=== PATIENT | female | born 2000 | race Caucasian/White ===

== ENCOUNTER → 2022-02-26 | Outpatient (REF) | payer OTHER | LOC: M LAB REF 19:23 | PROVIDERS: ATTEND Internal Medicine | DX: R10.30 Lower abdominal pain, unspecified (principal) ==

== ENCOUNTER → 2022-10-24 | Outpatient (CLI) | payer OTHER | LOC: M SOG 10:47 | PROVIDERS: ATTEND Physician Assistant | DX: M25.562 Pain in left knee (principal) ==

== ENCOUNTER → 2023-01-13 | Outpatient (REF) | payer OTHER ==
[2023-01-13 15:26] LABS: GC DNA AMPLIFICATION NEGATIVE (NEGATIVE)
== END ==
LOC: M LAB REF 12:20
PROVIDERS: ATTEND Physician Assistant
DX: R30.0 Dysuria (principal)

== ENCOUNTER 2023-06-11 21:21 | Inpatient (IN) | payer MEDICAID, OTHER, SELFPAY ==
[~2023-06-11] VITALS: Ht 154.9 cm; Wt 53.1 kg
[2023-06-11 22:58] LABS: HEMATOCRIT 38.9 % (36.0-47.0); MEAN CORPUSCULAR HEMOGLOBIN 26.9 pg (27.0-33.0); MEAN CORPUSCULAR HGB CONC 33.4 g/dl (32.0-36.5); MEAN CORPUSCULAR VOLUME 80.4 fl (80.0-96.0); PLATELET COUNT, AUTOMATED 223 10^3/uL (150-450); RED BLOOD COUNT 4.84 10^6/uL (4.00-5.40); WHITE BLOOD COUNT 9.2 10^3/uL (4.0-10.0)
[2023-06-11 23:21] LABS: AMPHETAMINES LEVEL URINE NEGATIVE (NEGATIVE); BARBITURATES URINE NEGATIVE (NEGATIVE); BENZODIAZEPINES URINE NEGATIVE (NEGATIVE); CANNABINOIDS URINE NEGATIVE (NEGATIVE); COCAINE METABOLITE URINE NEGATIVE (NEGATIVE); METHADONE URINE NEGATIVE (NEGATIVE); OPIATES URINE NEGATIVE (NEGATIVE); PHENCYCLIDINE URINE NEGATIVE (NEGATIVE)
[2023-06-11 23:23] LABS: ETHYL ALCOHOL (ETHANOL) 0.003 % (0.000-0.010)
[2023-06-11 23:25] LABS: ALBUMIN 4.5 G/DL (3.2-5.2); ALKALINE PHOSPHATASE 64 U/L (46-116); ALT/SGPT 18 U/L (7.0-40); AST/SGOT 19 U/L (<34); BILIRUBIN,DIRECT 0.2 MG/DL (<0.4); BILIRUBIN,TOTAL 0.6 MG/DL (0.3-1.2); BLOOD UREA NITROGEN 10 MG/DL (9-23); CALCIUM LEVEL 9.4 MG/DL (8.5-10.1); CARBON DIOXIDE LEVEL 26 MMOL/L (20-31); CHLORIDE LEVEL 106 MMOL/L (98-107); CREATININE FOR GFR 0.64 MG/DL (0.55-1.30); GLOMERULAR FILTRATION RATE > 60.0 (>60); GLUCOSE, FASTING 88 MG/DL (60-100); POTASSIUM SERUM 3.9 MMOL/L (3.5-5.1); SALICYLATE LEVEL < 3.0 MG/DL (<30); SODIUM LEVEL 140 MMOL/L (136-145)
[2023-06-11 23:26] LABS: HCG, SERUM QUALITATIVE NEGATIVE (NEGATIVE)
[2023-06-11 23:27] LABS: THYROID STIMULATING HORMONE 0.343 uIU/ML (0.55-4.78)
[2023-06-11] MEDS ORDERED: HOME MED LIST COMPLETE! XX SCH (23:35)
[2023-06-12 00:06] LABS: FREE T4 1.26 NG/DL (0.89-1.76)
[2023-06-13] MEDS ORDERED: diphenhydrAMINE 25MG CAP PO ONE (02:30)
[2023-06-13] MEDS ORDERED: IBUPROFEN 400MG TAB PO PRN (13:25)
[2023-06-13] MEDS ORDERED: ACETAMINOPHEN TAB 650MG DOSE (2X325MG) PO PRN (13:25)
[2023-06-13] MEDS ORDERED: MAALOX 30 ML SUSP *UDC PO PRN (13:25)
[2023-06-13] MEDS ORDERED: diphenhydrAMINE 25MG CAP PO PRN (13:25)
[2023-06-13] MEDS ORDERED: MOM 30ML SUSPENSION UDC PO PRN (13:25)
[2023-06-13 14:53] VITALS: BP 123/83; TEMP 98.6; O2SAT 98
[2023-06-14 06:38] VITALS: BP 117/57; TEMP 97.7; O2SAT 100
[2023-06-14] MEDS: FLUoxetine 20MG CAP PO SCH (08:25)
[2023-06-14] MEDS ORDERED: KETOROLAC TROMETHAMINE 10 MG TAB PO PRN (17:20)
[2023-06-14] MEDS: DICLOFENAC EPOLAMINE 1.3% PATCH TOP SCH (18:48)
[2023-06-14 19:02] VITALS: BP 137/84; TEMP 97.6
[2023-06-14] MEDS: traZODone 50 MG TAB PO PRN (21:28)
[2023-06-14 21:49] VITALS: BP 139/84; O2SAT 99
[2023-06-15] MEDS: DICLOFENAC EPOLAMINE 1.3% PATCH TOP SCH (05:34)
[2023-06-15 06:07] VITALS: BP 105/60; TEMP 98.3; O2SAT 100
[2023-06-15] MEDS: FLUoxetine 20MG CAP PO SCH (08:18)
[2023-06-15] MEDS: DICLOFENAC EPOLAMINE 1.3% PATCH TOP PRN (11:08)
[2023-06-15 18:55] VITALS: BP 117/68; TEMP 98.5; O2SAT 100
[2023-06-15] MEDS: traZODone 50 MG TAB PO PRN (21:38)
[2023-06-16 06:42] VITALS: BP 108/61; TEMP 98.9
[2023-06-16] MEDS: FLUoxetine 10 MG CAP PO SCH (09:22)
[2023-06-16] MEDS: DICLOFENAC EPOLAMINE 1.3% PATCH TOP PRN (09:23)
[2023-06-16 16:14] VITALS: BP 139/82; TEMP 98.5; O2SAT 99
[2023-06-16] MEDS: traZODone 50 MG TAB PO PRN (21:50)
[2023-06-17 06:18] VITALS: BP 113/57; TEMP 99.2; O2SAT 97
[2023-06-17] MEDS: FLUoxetine 10 MG CAP PO SCH (09:26)
[2023-06-17] MEDS: DICLOFENAC EPOLAMINE 1.3% PATCH TOP PRN (09:34)
[2023-06-17 16:42] VITALS: BP 115/65; TEMP 98.4; O2SAT 100
[2023-06-18 06:32] VITALS: BP 103/58; TEMP 97.6; O2SAT 98
[2023-06-18] MEDS: FLUoxetine 10 MG CAP PO SCH (08:08)
[2023-06-18] MEDS: DICLOFENAC EPOLAMINE 1.3% PATCH TOP PRN (09:37)
[2023-06-18 16:56] VITALS: BP 142/65; TEMP 98.1; O2SAT 100
[2023-06-18] MEDS: traZODone 50 MG TAB PO PRN (20:53)
[2023-06-19 06:30] VITALS: BP 129/66; TEMP 97.5; O2SAT 100
[2023-06-19] MEDS ORDERED: FLUO10CA18 PO (06:55)
[2023-06-19] MEDS ORDERED: TRAZ-252 PO (06:55)
[2023-06-19] MEDS ORDERED: DICL1PAT6 TOP (06:55)
[2023-06-19] MEDS ORDERED: HYDR-3363 PO (06:55)
[2023-06-19] MEDS: DICLOFENAC EPOLAMINE 1.3% PATCH TOP PRN (07:56)
[2023-06-19] MEDS: FLUoxetine 10 MG CAP PO SCH (09:18)
== END 2023-06-19 10:29 | disposition home or self-care (01) | DRG 754 ==
LOC: M ED 21:21 → CANBEDREQ 06-12 15:49 → M ED INP 06-13 13:21 → M PSY 06-13 14:46
PROVIDERS: ADMIT Student in an Organized Health Care Education/Training Program; ATTEND Student in an Organized Health Care Education/Training Program
DX: F32.A Depression, unspecified (principal); R45.851 Suicidal ideations; F41.9 Anxiety disorder, unspecified; F64.9 Gender identity disorder, unspecified; F43.10 Post-traumatic stress disorder, unspecified; Z62.810 Personal history of physical and sexual abuse in childhood; Z79.899 Other long term (current) drug therapy; Z88.0 Allergy status to penicillin

== ENCOUNTER 2023-08-12 12:16 | Emergency (ER) | payer MEDICAID, OTHER ==
[~2023-08-12] VITALS: Ht 154.9 cm; Wt 54.3 kg
[~2023-08-12 12:16] MED LIST: DICL1PAT6 TOP; FLUO10CA18 PO; HYDR-3363 PO; TRAZ-252 PO
[2023-08-12 12:43] VITALS: BP 131/85; TEMP 98.7; O2SAT 100
== END 2023-08-12 12:55 | disposition home or self-care (01) ==
LOC: M ED 12:16
DX: M25.562 Pain in left knee (principal); Z79.1 Long term (current) use of non-steroidal anti-inflammatories (NSAID); Z79.899 Other long term (current) drug therapy; Z88.0 Allergy status to penicillin

== ENCOUNTER → 2023-09-04 | Outpatient (REF) | payer MEDICAID, OTHER ==
[2023-09-04 16:40] LABS: BASO # 0.1 10^3/uL (0.0-0.2); BASO % 0.6 % (0.0-1.0); C REACTIVE PROTEIN QUANTITATIV < 0.40 MG/DL (<1.0); EOS # 0.1 10^3/uL (0.0-0.5); EOS % 1.4 % (0.0-3.0); HEMATOCRIT 40.4 % (36.0-47.0); HEMOGLOBIN 13.4 g/dl (12.0-15.5); LYMPH # 2.4 10^3/uL (1.5-5.0); MEAN CORPUSCULAR HEMOGLOBIN 27.3 pg (27.0-33.0); MEAN CORPUSCULAR HGB CONC 33.2 g/dl (32.0-36.5); MEAN CORPUSCULAR VOLUME 82.3 fl (80.0-96.0); MONO # 0.5 10^3/uL (0.0-0.8); MONO % 5.9 % (2.0-8.0); NEUTROPHILS # 5.4 10^3/uL (1.5-8.5); NEUTROPHILS % 63.7 % (36.0-66.0); PLATELET COUNT, AUTOMATED 236 10^3/uL (150-450); RED BLOOD COUNT 4.91 10^6/uL (4.00-5.40); WHITE BLOOD COUNT 8.4 10^3/uL (4.0-10.0)
[2023-09-04 16:42] LABS: ALBUMIN 4.4 G/DL (3.2-5.2); ALKALINE PHOSPHATASE 76 U/L (46-116); ALT/SGPT 25 U/L (7.0-40); AST/SGOT 21 U/L (<34); BILIRUBIN,TOTAL 0.7 MG/DL (0.3-1.2); BLOOD UREA NITROGEN 10 MG/DL (9-23); CALCIUM LEVEL 9.7 MG/DL (8.5-10.1); CARBON DIOXIDE LEVEL 27 MMOL/L (20-31); CHLORIDE LEVEL 100 MMOL/L (98-107); CREATININE FOR GFR 0.66 MG/DL (0.55-1.30); GLOMERULAR FILTRATION RATE > 60.0 (>60); GLUCOSE, FASTING 72 MG/DL (60-100); POTASSIUM SERUM 4.2 MMOL/L (3.5-5.1); SODIUM LEVEL 136 MMOL/L (136-145); TOTAL PROTEIN 8.1 G/DL (5.7-8.2)
[2023-09-04 16:54] LABS: ERYTHROCYTE SEDIMENTATION RATE 21 mm/hr (0-20)
== END ==
LOC: M LAB REF 16:14
PROVIDERS: ATTEND Family Medicine Addiction Medicine
DX: M25.50 Pain in unspecified joint (principal)

== ENCOUNTER → 2023-09-13 | Outpatient (REF) | payer OTHER ==
[~2023-09-13] MED LIST changes: +FLUO-290 PO; -FLUO10CA18 PO
== END ==
LOC: M LAB REF 12:45
PROVIDERS: ATTEND Family Medicine Addiction Medicine
DX: M25.551 Pain in right hip (principal)

== ENCOUNTER 2023-10-12 15:46 | Emergency (ER) | payer OTHER ==
[~2023-10-12] VITALS: Ht 154.9 cm; Wt 57.7 kg
[2023-10-12 15:46] VITALS: BP 120/69; TEMP 99; O2SAT 99
[2023-10-12] MEDS ORDERED: FLUO40CA (16:03)
[2023-10-12] MEDS ORDERED: MELO15TA28 (16:03)
[2023-10-12] MEDS ORDERED: BUPR150T12 (16:03)
== END 2023-10-12 18:10 | disposition home or self-care (01) ==
LOC: M ED 15:46
DX: Z32.01 Encounter for pregnancy test, result positive (principal); Z87.59 Personal history of other complications of pregnancy, childbirth and the puerperium; Z79.899 Other long term (current) drug therapy; Z88.0 Allergy status to penicillin

== ENCOUNTER 2023-10-30 19:01 | Emergency (ER) | payer MEDICARE, OTHER ==
[~2023-10-30] VITALS: Ht 154.9 cm; Wt 58.3 kg
[2023-10-30 19:01] VITALS: BP 126/78; TEMP 98.9; O2SAT 99
[~2023-10-30 19:01] MED LIST changes: +BUPR150T12; +FLUO40CA; +MELO15TA28
== END 2023-10-30 19:44 | disposition left against medical advice (07) ==
LOC: M ED 19:01
DX: Z53.21 Procedure and treatment not carried out due to patient leaving prior to being seen by health care provider (principal)

== ENCOUNTER 2023-11-08 23:02 | Emergency (ER) | payer OTHER ==
[~2023-11-08] VITALS: Ht 154.9 cm; Wt 58.3 kg
[2023-11-08 23:38] LABS: BASO % 0.5 % (0.0-1.0); EOS # 0.1 10^3/uL (0.0-0.5); EOS % 1.5 % (0.0-3.0); HEMATOCRIT 35.6 % (36.0-47.0); HEMOGLOBIN 11.7 g/dl (12.0-15.5); LYMPH % 25.1 % (24.0-44.0); MEAN CORPUSCULAR HEMOGLOBIN 27.1 pg (27.0-33.0); MEAN CORPUSCULAR HGB CONC 32.9 g/dl (32.0-36.5); MEAN CORPUSCULAR VOLUME 82.6 fl (80.0-96.0); MONO # 0.7 10^3/uL (0.0-0.8); MONO % 9.3 % (2.0-8.0); NEUTROPHILS % 63.3 % (36.0-66.0); PLATELET COUNT, AUTOMATED 173 10^3/uL (150-450); RED BLOOD COUNT 4.31 10^6/uL (4.00-5.40); WHITE BLOOD COUNT 7.9 10^3/uL (4.0-10.0)
[2023-11-08 23:46] LABS: APPEARANCE, URINE CLEAR (CLEAR); BACTERIA, URINE AUTO 1+ (NEGATIVE); BILIRUBIN, URINE AUTO NEGATIVE (NEGATIVE); BLOOD, URINE BLOOD 2+ (NEGATIVE); COLOR, URINE STRAW (YELLOW); GLUCOSE, URINE (UA) AUTO NEGATIVE (NEGATIVE); KETONE, URINE AUTO NEGATIVE (NEGATIVE); LEUKOCYTE ESTERASE, URINE AUTO TRACE (NEGATIVE); NITRITE, URINE AUTO NEGATIVE (NEGATIVE); PROTEIN, URINE AUTO NEGATIVE (NEGATIVE); RBC, URINE AUTO 0 /HPF (0-3); SPECIFIC GRAVITY URINE AUTO 1.003 (1.002-1.035); SQUAMOUS EPITHELIAL CELL UR AU 1 /HPF (0-6); UROBILINOGEN, URINE AUTO 0.2 mg/dL (0.0-2.0); WBC, URINE AUTO 1 /HPF (0-3)
[2023-11-09 00:03] LABS: BLOOD UREA NITROGEN 8 MG/DL (9-23); CALCIUM LEVEL 9.1 MG/DL (8.5-10.1); CARBON DIOXIDE LEVEL 25 MMOL/L (20-31); CHLORIDE LEVEL 101 MMOL/L (98-107); CREATININE FOR GFR 0.54 MG/DL (0.55-1.30); GLOMERULAR FILTRATION RATE > 60.0 (>60); GLUCOSE, FASTING 86 MG/DL (60-100); POTASSIUM SERUM 3.9 MMOL/L (3.5-5.1); SODIUM LEVEL 135 MMOL/L (136-145)
[2023-11-09 01:46] VITALS: BP 133/79; TEMP 98.5; O2SAT 100
== END 2023-11-09 02:30 | disposition left against medical advice (07) ==
LOC: M ED 23:02
DX: Z53.21 Procedure and treatment not carried out due to patient leaving prior to being seen by health care provider (principal)

== ENCOUNTER → 2023-12-14 | Outpatient (CLI) | payer OTHER ==
[2023-12-14 17:24] LABS: HEMATOCRIT 36.4 % (36.0-47.0); HEMOGLOBIN 12.3 g/dl (12.0-15.5); MEAN CORPUSCULAR HEMOGLOBIN 27.7 pg (27.0-33.0); MEAN CORPUSCULAR HGB CONC 33.8 g/dl (32.0-36.5); PLATELET COUNT, AUTOMATED 179 10^3/uL (150-450); RED BLOOD COUNT 4.44 10^6/uL (4.00-5.40); WHITE BLOOD COUNT 10.5 10^3/uL (4.0-10.0)
[2023-12-14 18:21] LABS: HIV 1&2 SCREEN NEGATIVE (NEGATIVE)
[2023-12-14 18:29] LABS: HEPATITIS C VIRUS ABY INDEX < 0.02 INDEX (<0.8)
[2023-12-14 19:09] LABS: GC DNA AMPLIFICATION NEGATIVE (NEGATIVE)
== END ==
LOC: M PLALAB 14:42
PROVIDERS: ATTEND Obstetrics & Gynecology
DX: Z34.80 Encounter for supervision of other normal pregnancy, unspecified trimester (principal)

== ENCOUNTER 2024-02-12 08:57 | Emergency (ER) | payer MEDICARE, OTHER ==
[2024-02-12] MEDS ORDERED: PRENTAB9 PO (09:40)
[2024-02-12] MEDS ORDERED: LEXA1TAB2 PO (09:40)
== END 2024-02-12 09:10 | disposition admitted as inpatient to this hospital (09) ==
LOC: M ED 08:57
DX: Z53.21 Procedure and treatment not carried out due to patient leaving prior to being seen by health care provider (principal)

== ENCOUNTER 2024-02-12 09:06 | Outpatient (CLI) | payer OTHER, MEDICARE ==
[~2024-02-12] VITALS: Ht 154.9 cm; Wt 62.1 kg
[2024-02-12 09:32] VITALS: BP 128/70
[2024-02-12] MEDS ORDERED: LEXA1TAB2 PO (09:40)
[2024-02-12] MEDS ORDERED: PRENTAB9 PO (09:40)
[2024-02-12 10:31] LABS: APPEARANCE, URINE HAZY (CLEAR); BACTERIA, URINE AUTO 1+ (NEGATIVE); BILIRUBIN, URINE AUTO NEGATIVE (NEGATIVE); BLOOD, URINE BLOOD NEGATIVE (NEGATIVE); COLOR, URINE YELLOW (YELLOW); GLUCOSE, URINE (UA) AUTO NEGATIVE (NEGATIVE); KETONE, URINE AUTO NEGATIVE (NEGATIVE); LEUKOCYTE ESTERASE, URINE AUTO NEGATIVE (NEGATIVE); MUCUS, URINE SMALL (NEGATIVE); NITRITE, URINE AUTO NEGATIVE (NEGATIVE); PROTEIN, URINE AUTO NEGATIVE (NEGATIVE); RBC, URINE AUTO 1 /HPF (0-3); SPECIFIC GRAVITY URINE AUTO 1.012 (1.002-1.035); SQUAMOUS EPITHELIAL CELL UR AU 2 /HPF (0-6); UROBILINOGEN, URINE AUTO 0.2 mg/dL (0.0-2.0); WBC, URINE AUTO 5 /HPF (0-3)
[2024-02-12] MEDS: ACETAMINOPHEN 500 MG TAB PO ONE (11:03)
== END 2024-02-12 12:30 | disposition home or self-care (01) ==
LOC: M LDO 09:06
PROVIDERS: ATTEND Advanced Practice Midwife
DX: O26.892 Other specified pregnancy related conditions, second trimester (principal); O09.292 Supervision of pregnancy with other poor reproductive or obstetric history, second trimester; O99.342 Other mental disorders complicating pregnancy, second trimester; M54.9 Dorsalgia, unspecified; F32.A Depression, unspecified; Y92.9 Unspecified place or not applicable; Y93.9 Activity, unspecified; Y99.9 Unspecified external cause status; Z3A.21 21 weeks gestation of pregnancy
CPT/HCPCS: 76775; 81001; 87086; G0463

== ENCOUNTER → 2024-02-13 | Outpatient (CLI) | payer OTHER ==
[~2024-02-13] MED LIST changes: +LEXA1TAB2 PO; +PRENTAB9 PO
== END ==
LOC: M WHC 13:04
PROVIDERS: ATTEND Specialist
DX: Z34.82 Encounter for supervision of other normal pregnancy, second trimester (principal)

== ENCOUNTER → 2024-04-29 | Outpatient (REF) | payer OTHER, MEDICARE ==
[2024-04-29 20:50] LABS: Trichomonas vaginalis (AMP) NOT DETECTED (NEGATIVE)
[2024-04-29 21:13] LABS: GC DNA AMPLIFICATION NEGATIVE (NEGATIVE)
== END ==
LOC: M SFHCWAGY 17:12
PROVIDERS: ATTEND Obstetrics & Gynecology
DX: Z34.82 Encounter for supervision of other normal pregnancy, second trimester (principal)

== ENCOUNTER → 2024-05-16 | Outpatient (CLI) | payer OTHER ==
[2024-05-16 16:09] LABS: HEMATOCRIT 35.6 % (36.0-47.0); HEMOGLOBIN 11.8 g/dl (12.0-15.5); MEAN CORPUSCULAR HEMOGLOBIN 28.9 pg (27.0-33.0); MEAN CORPUSCULAR HGB CONC 33.1 g/dl (32.0-36.5); PLATELET COUNT, AUTOMATED 184 10^3/uL (150-450); RED BLOOD COUNT 4.09 10^6/uL (4.00-5.40); WHITE BLOOD COUNT 10.6 10^3/uL (4.0-10.0)
[2024-05-16 16:41] LABS: GLUCOSE CHALLENGE TEST 1 HOUR 123 MG/DL (LESS THAN 140)
[2024-05-16 17:15] LABS: HIV 1&2 SCREEN NEGATIVE (NEGATIVE)
[2024-05-16 17:23] LABS: HEPATITIS C VIRUS ABY INDEX < 0.02 INDEX (<0.8)
[2024-05-16 17:57] LABS: GC DNA AMPLIFICATION NEGATIVE (NEGATIVE)
== END ==
LOC: M PLALAB 13:17
PROVIDERS: ATTEND Obstetrics & Gynecology
DX: Z34.82 Encounter for supervision of other normal pregnancy, second trimester (principal)

== ENCOUNTER 2024-05-30 01:45 | Outpatient (CLI) | payer OTHER ==
[~2024-05-30] VITALS: Ht 157.5 cm; Wt 73.0 kg
[2024-05-30 02:14] VITALS: BP 136/92
== END 2024-05-30 02:45 | disposition home or self-care (01) ==
LOC: M LDO 01:45
PROVIDERS: ATTEND Advanced Practice Midwife
DX: O47.03 False labor before 37 completed weeks of gestation, third trimester (principal); O99.343 Other mental disorders complicating pregnancy, third trimester; F43.10 Post-traumatic stress disorder, unspecified; F32.A Depression, unspecified; F41.9 Anxiety disorder, unspecified; Z3A.37 37 weeks gestation of pregnancy
CPT/HCPCS: 59025; G0463